=== PATIENT | female | born 1975 | race Caucasian/White ===

== ENCOUNTER 2017-05-16 14:24 | Inpatient (IN) | payer OTHER ==
[2017-05-16] MEDS ORDERED: NS 1,000 ML IV ONE (15:09)
--- NOTE | 2017-05-16 15:09 | EDPHY ---
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, no previous - Personal History LMP (Females 10-55): Hysterectomy Current Tetanus/Diphtheria Vaccine: Unsure - Medical/Surgical History Hx Asthma: No Hx Chronic Respiratory Disease: No Hx Diabetes: No Hx Cardiac Disease: No Hx Renal Disease: No Hx Cirrhosis: No Hx Alcoholism: No Hx HIV/AIDS: No Hx Splenectomy or Spleen Trauma: No Other PMH: adhd, hysterectomy - Social History Smoking Status: Current some day smoker Time Seen by Provider: 05/16/17 14:48 HPI/ROS: CHIEF COMPLAINT: Seizure-like activity HISTORY OF PRESENT ILLNESS: 41-year-old female, generally healthy, no prior history of seizure, arrives via private vehicle. 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 Now back at baseline complaining of feeling tired. Sleep appetite have been normal. No unusual stressors. No recent illness. No head injury. No trauma. PRIMARY CARE PROVIDER:Juma REVIEW OF SYSTEMS: A ten point review of systems was performed and is negative with the exception of the items mentioned in the HPI PAST MEDICAL & SURGICAL HISTORY: No prior history of seizure SOCIAL HISTORY:intermittent cigarette use. No alcohol or drug use PHYSICAL EXAM (Prior to examination, patient consented to physical exam, hands were washed and my usual and customary physical exam procedures followed) 1) GENERAL: Well-developed, well-nourished, alert and oriented. Appears to be in no acute distress. 2) HEAD: Normocephalic, atraumatic 3) HEENT: Pupils equal, round, reactive to light bilaterally. Sclera anicteric.Abrasion to bridge of nose where her glasses are. Nasopharynx, oropharynx, clear, no lesions. Left lateral tongue abrasion. No hemotympanum. No fluid or blood external auditory canal. No rhinorrhea. No raccoon eyes no Segura sign. Ears bilaterally with normal tympanic membranes. 4) NECK: Full range of motion, no meningeal signs. 5) LUNGS: Clear auscultation bilaterally, no wheezes, no rhonchi, no retractions. 6) HEART: Regular rate and rhythm, no murmur, no heave, no gallop. 7) ABDOMEN: No guarding, no rebound, no focal tenderness, negative McBurney's, negative Bernal's, negative Rovsing's, negative peritoneal sign, 8) MUSCULOSKELETAL: Moving all extremities, no focal areas of tenderness, no obvious trauma. No peripheral edema or discoloration. 9) BACK: No CVA tenderness, no midline vertebral tenderness, no fluctuance, no step-off, no obvious trauma, no visual or palpable abnormality. 10) SKIN: No rash, no petechiae. 11) Psychiatric: Patient is oriented X 3, there is no agitation. 12) NEURO: Awake, alert, and oriented to person, place and time. Answers questions appropriately. There were no obvious focal neurologic abnormalities. No cerebellar dysfunction. Normal steady gait. Upper and lower extremities bilaterally with strength 5 / 5, reflexes 2+. DIFFERENTIAL DIAGNOSIS: in no particular include but limited to cardiac arrhythmia, seizure, malignancy (Betty,Ligia Dee) Constitutional: Initial Vital Signs Temperature (C) 36.5 C 05/16/17 14:31 Heart Rate 130 H 05/16/17 14:31 Respiratory Rate 16 05/16/17 14:31 Blood Pressure 129/74 H 05/16/17 14:31 O2 Sat (%) 97 05/16/17 14:31 O2 Delivery Mode Room Air Allergies/Adverse Reactions: No Known Allergies Allergy (Verified 05/16/17 19:12) Home Medications: Medication Instructions Recorded Dextroamphetamine/Amphetamine 5 mg PO DAILY PRN 05/16/17 [Adderall 5 mg Tablet] Dextroamphetamine/Amphetamine 40 mg PO DAILY 05/16/17 [Adderall Xr 20 mg Capsule] Herbals/Supplements -Info Only 1 ea PO DAILY 05/16/17 Medical Decision Making - Diagnostics Imaging Results: Imaging Impressions Brain MRI 05/17/17 07:48 Impression: 1. 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 2. Data submitted for procedural planning. ED Course/Re-evaluation: This patient was turned over me at change of shift. This patient has a brain mass an MRI with mild edema. She has been prophylaxis for her seizure with Keppra. Dr. Jhonatan Yao from Neurosurgery seen the patient. I will admit her to Dr. Sommer The neurosurgical team will develop a plan. (Taras Yeboah) 3:40 p.m.: Reviewed the imaging results with radiologist showing a left temporal calcified mass, radiologist recommended MRI. Discussed this with the patient and MRI will be obtained. Care of patient under supervision of secondary supervising physician Dr Yeboah . Will initiate Keppra. 5:00 p.m. care patient turned over to Dr. Taras Yeboah awaiting MRI brain ( Ligia Hernández) - Data Points Laboratory Results: Laboratory Results 05/17/17 05:10 05/17/17 05:10 05/17/17 05/17/17 05:10 05:10 WBC 10.50 10^3/uL H 10^3/uL (3.80-9.50) RBC 5.12 10^6/uL 10^6/uL (4.18-5.33) Hgb 15.8 g/dL g/dL (12.6-16.3) Hct 44.5 % % (38.0-47.0) MCV 86.9 fL fL (81.5-99.8) MCH 30.9 pg pg (27.9-34.1) MCHC 35.5 g/dL g/dL (32.4-36.7) RDW 12.2 % % (11.5-15.2) Plt Count 278 10^3/uL 10^3/uL (150-400) MPV 9.2 fL fL (8.7-11.7) Neut % (Auto) 68.0 % % (39.3-74.2) Lymph % (Auto) 21.3 % % (15.0-45.0) [place] % (Auto) 7.1 % % (4.5-13.0) Eos % (Auto) 2.8 % % (0.6-7.6) Baso % (Auto) 0.4 % % (0.3-1.7) Nucleat RBC Rel Count 0.0 % % (0.0-0.2) Absolute Neuts (auto) 7.14 10^3/uL H 10^3/uL (1.70-6.50) Absolute Lymphs (auto) 2.24 10^3/uL 10^3/uL (1.00-3.00) Absolute Monos (auto) 0.75 10^3/uL 10^3/uL (0.30-0.80) Absolute Eos (auto) 0.29 10^3/uL 10^3/uL (0.03-0.40) Absolute Basos (auto) 0.04 10^3/uL 10^3/uL (0.02-0.10) Absolute Nucleated RBC 0.00 10^3/uL 10^3/uL (0-0.01) Immature Gran % 0.4 % % (0.0-1.1) Immature Gran # 0.04 10^3/uL 10^3/uL (0.00-0.10) Sodium 139 mEq/L mEq/L (134-144) Potassium 4.4 mEq/L mEq/L (3.5-5.2) Chloride 110 mEq/L mEq/L (97-110) Carbon Dioxide 22 mEq/l mEq/l (22-31) Anion Gap 7 mEq/L L mEq/L (8-16) BUN 10 mg/dL mg/dL (7-23) Creatinine 0.9 mg/dL mg/dL (0.6-1.0) Estimated GFR > 60 Glucose 92 mg/dL mg/dL (70-100) Calcium 9.2 mg/dL mg/dL (8.5-10.4) Total Bilirubin 0.8 mg/dL mg/dL (0.1-1.4) AST 21 IU/L IU/L (14-46) ALT 29 IU/L IU/L (9-52) Alkaline Phosphatase 52 IU/L IU/L (38-126) Total Protein 6.1 g/dL L g/dL (6.3-8.2) Albumin 3.6 g/dL g/dL (3.5-5.0) Medications Given: Levetiracetam 500 mg/ Sodium (Chloride) 105 mls @ 420 mls/hr IV BID DORA Stop: 11/12/17 20:59 Last Admin: 05/17/17 09:17 Dose: 105 mls Discontinued Medications Sodium Chloride (Ns) 1,000 mls @ 0 mls/hr IV ONCE ONE PRN Reason: Wide Open Stop: 05/16/17 15:10 Last Admin: 05/16/17 15:47 Dose: 1,000 mls Levetiracetam 750 mg/ Sodium (Chloride) 107.5 mls @ 440 mls/hr IV EDNOW ONE Stop: 05/16/17 16:11 Last Admin: 05/16/17 16:57 Dose: 107.5 mls Cefazolin Sodium/Dextrose (Ancef 2 Gm (Premix)) 100 mls @ 200 mls/hr IV ONCALL ONE PRN Reason: Protocol Stop: 05/17/17 08:18 Last Admin: 05/17/17 08:23 Dose: 100 mls Departure - Departure Disposition: [facility] Acute Clinical Impression: Seizure, Frontal mass of brain Condition: Fair
[2017-05-16 15:13] LABS: % IMMATURE GRANULYOCYTES 0.3 % (0.0-1.1); ABSOLUTE IMMATURE GRANULOCYTES 0.04 10^3/uL (0.00-0.10); ADD DIFF? NO; ADD MORPH? NO; ADD SCAN? NO; ATYPICAL LYMPHOCYTE FLAG 0 (0-99); FRAGMENT RBC FLAG 0 (0-99); HEMOGLOBIN 17.7 g/dL (12.6-16.3); LEFT SHIFT FLG 0 (0-99); LIPEMIA HEMOLYSIS FLAG 90 (0-99); MEAN CELL HEMOGLOBIN 31.1 pg (27.9-34.1); MEAN CELL HEMOGLOBIN CONCENTR. 36.1 g/dL (32.4-36.7); MEAN PLATELET VOLUME 9.4 fL (8.7-11.7); PLATELET CLUMPS FLAG 0 (0-99); PLATELET COUNT 314 10^3/uL (150-400); RED CELL DISTRIBUTION WIDTH 12.5 % (11.5-15.2)
--- NOTE | 2017-05-16 15:17 | CPEKG ---
Heart Rate: 107 RR Interval: 561 P-R Interval: 180 QRSD Interval: 72 QT Interval: 332 QTC Interval: 443 P Brinkley: 48 QRS Brinkley: -73 T Wave Brinkley: 38 EKG Severity - ABNORMAL ECG - EKG Impression: SINUS TACHYCARDIA EKG Impression: LEFT ANTERIOR FASCICULAR BLOCK EKG Impression: BORDERLINE R WAVE PROGRESSION, ANTERIOR LEADS Electronically Signed By: Taras Yeboah 16-May-2017 20:23:32
[2017-05-16 15:19] LABS: ANION GAP 10 mEq/L (8-16); CALCIUM 9.8 mg/dL (8.5-10.4); CARBON DIOXIDE 23 mEq/l (22-31); CHLORIDE 105 mEq/L (97-110); ETHANOL SERUM < 10 mg/dL (0-10); GLOMERULAR FILTRATION RATE > 60; GLUCOSE 104 mg/dL (70-100); POTASSIUM 3.9 mEq/L (3.5-5.2); SODIUM 138 mEq/L (134-144)
[2017-05-16 15:54] LABS: APTT 30.3 SEC (23.0-38.0); PROTIME(PATIENT) 13.1 SEC (12.0-15.0)
[2017-05-16] MEDS ORDERED: levETIRAcetam 750 MG in NS 100 ML IV ONE (15:57)
[2017-05-16] MEDS ORDERED: GADOBUTROL 10 ML VIAL IVP ONE (17:20)
[2017-05-16] MEDS ORDERED: ONDANSETRON 4 MG/2 ML VIAL IVP PRN (19:40)
[2017-05-16] MEDS ORDERED: ACETAMINOPHEN 325 MG TAB PO PRN (19:40)
[2017-05-16] MEDS ORDERED: TEMAZEPAM 15 MG CAP PO PRN (19:40)
--- NOTE | 2017-05-16 20:10 | GHP ---
[f rep st] HISTORY AND PHYSICAL DATE OF ADMISSION: 05/16/2017 CHIEF COMPLAINT: Seizure. HISTORY OF PRESENT ILLNESS: This is a 41-year-old healthy female, who had a seizure. She has never had a seizure before. She does not drink. She does not use any other drugs, although she is on Adde rall. She did bite her tongue, as well as lose control of her bladder. She has had no prodrome of n eurologic symptoms, acute, including headache, confusion, or any focal weakness. PAST MEDICAL/SURGICAL HISTORY: 1. Hysterectomy. 2. Attention deficit hyperactivity disorder. MEDICATIONS: Please see medication reconciliation. ALLERGIES: No known drug allergies. SOCIAL HISTORY: She is accompanied by her partner. She does smoke occasionally. She does not drink . FAMILY HISTORY: No brain tumors. REVIEW OF SYSTEMS: A 10-point review of systems is conducted and is negative except per HPI. PHYSICAL EXAMINATION: VITAL SIGNS: Blood pressure 116/78, heart rate 95, respiration rate 16, satti ng 96% on room air, temperature is 36.9. GENERAL: The patient is a very pleasant female, who is res ting comfortably, in no acute distress. HEENT: Shows to be normocephalic, atraumatic. CARDIOVASCUL AR: Shows regular rate and rhythm. No murmurs, rubs, or gallops. PULMONARY: Shows lungs clear to auscultation bilaterally. ABDOMEN: Soft, nontender, nondistended. SKIN: Showed no rash. : Camryn wed no [place]. NEUROLOGIC: Shows her to be alert and oriented x3. Cranial nerves 2-12 are intact. She has no aphasia. Strength is intact in the upper and lower extremities, as well as sensation to l ight touch. PSYCHIATRIC: Shows normal mood and affect. LABORATORY DATA: White count is 11.6, hemoglobin is 17.7, INR is 1. Basic metabolic panel is normal . Alcohol level negative. DATA: 1. I discussed this with Dr. Yeboah, who will admit to Med/Surg. 2. I reviewed her brain MRI. This shows a calcified enhancing left temporal mass suggesting a gangl ioglioma or less likely astrocytoma. IMPRESSION/PLAN: A 41-year-old female with new onset seizure, as well as a brain mass. 1. Brain mass: Dr. Yao has been consulted from neurosurgery. It does appear benign on imaging. The plan is to resect this tomorrow. She will be n.p.o. after midnight. 2. Seizure: This is likely due to this mass. Tonight we will continue Keppra. I have placed a bri rology consult for recommendations on ongoing antiepileptics postoperatively. 3. Tobacco use. /[id number]/MODL
[2017-05-16] MEDS: levETIRAcetam 500 MG in NS 100 ML IV SCH (21:31)
--- NOTE | 2017-05-17 00:45 | GCON ---
[f rep st] CONSULTATION NEUROSURGERY CONSULTATION DATE OF CONSULTATION: 05/16/2017 Patient was seen and evaluated at approximately 6:40 p.m. in the [facility] emergency department. HISTORY OF PRESENT ILLNESS: The patient is a 41-year-old woman, who was generally healthy with no pr ior major medical problems. She was apparently at work today when she had a witnessed seizure. This was witnessed by her work colleague, who is not currently present and cannot describe the semiology of the seizure at this time. Patient has no recollection of this event, but did have a short postict al phase afterwards. She now is feeling normal, and other than having a slight headache, says she liu s no major obvious complaints. She was brought to the [facility] emergency departmen t where a CT of the head was obtained, which showed a roughly 1 cm round heavily calcified mass at th e surface of the left temporal tip. Subsequent MRI again revealed a heavily calcified small mass wit h some gliosis surrounding. 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 There is no mass effect or midline shift. Again, the patient has no current symptoms. She denies any significant symptoms prior to having the seizure and does not have headaches often. She is a Ka iser patient. Lives in [place], [place]. REVIEW OF SYSTEMS: A 10-point review of systems is negative other than described in the HPI. PAST MEDICAL HISTORY: ADHD. PAST SURGICAL HISTORY: Hysterectomy. SOCIAL HISTORY: The patient smokes about a half a pack of cigarettes per day. She has no significan t alcohol or other drug use. 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 FAMILY HISTORY: Positive for a brain tumor in the paternal grandmother and paternal aunt, but she do es not know what type of tumors these might have been. ALLERGIES: No known drug allergies. MEDICATIONS: Adderall. PHYSICAL EXAMINATION: VITAL SIGNS: Patient currently is afebrile with normal stable vital signs. N EUROLOGIC: She is awake, alert, and oriented x3. HEENT: The pupils are equal, round, and reactive to light. Extraocular movements are intact. Face is symmetric. Tongue is midline. She has full 5/ 5 strength in the deltoid, biceps, triceps, wrist flexion and extension, and it senior software engineer java bilaterally. In th e lower extremities, she has 5/5 strength at the hip flexors and extensors, knee flexors and extensor s, and plantar and dorsiflexion bilaterally. Her sensation is normal throughout, and deep tendon ref lexes are normal. There is no pronator drift. No dysmetria or dysdiadochokinesia. Her speech is cl ear and fluent. IMAGING REVIEW: See HPI. LABORATORY REVIEW: The white count is 11.6, hemoglobin 17.7, hematocrit is 49, platelet count is 314 ,000. INR is 1.0, PTT is 30.3. Sodium is 138, potassium 3.9, BUN is 12, creatinine 1.0. Glucose is 104. ASSESSMENT AND PLAN: The patient is a 41-year-old woman with a new onset seizure. 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 There is no significant mass effect from this. She has been loaded with K eppra and should stay on Keppra currently. I discussed this mass with her, and while there is no urg ency to this, I recommended that we do a resective biopsy to both evaluate the type of mass and resec t it to get a diagnosis. This would likely be relatively low risk in this location. I told her that we could do this as early as tomorrow, although she wanted to take some time to think about, which I fully support. We talked about her need to avoid driving for potentially up to 6 months due to the seizure, and she is understanding of this. I will again stop by and discuss with her the possibiliti es of resection and biopsy, and we will proceed if she wishes. Otherwise, she could potentially be d ischarged to have this done as an outpatient. We will again discuss this with her tomorrow. In the meantime, she should maintain Keppra 750 twice daily. Thanks for the kind consult consultation. /[id number]/MODL
[2017-05-17 05:26] LABS: % IMMATURE GRANULYOCYTES 0.4 % (0.0-1.1); ABSOLUTE IMMATURE GRANULOCYTES 0.04 10^3/uL (0.00-0.10); ADD DIFF? NO; ADD MORPH? NO; ADD SCAN? NO; ATYPICAL LYMPHOCYTE FLAG 0 (0-99); FRAGMENT RBC FLAG 0 (0-99); HEMATOCRIT 44.5 % (38.0-47.0); HEMOGLOBIN 15.8 g/dL (12.6-16.3); LEFT SHIFT FLG 0 (0-99); LIPEMIA HEMOLYSIS FLAG 90 (0-99); MEAN CELL HEMOGLOBIN 30.9 pg (27.9-34.1); MEAN CELL HEMOGLOBIN CONCENTR. 35.5 g/dL (32.4-36.7); MEAN CELL VOLUME 86.9 fL (81.5-99.8); MEAN PLATELET VOLUME 9.2 fL (8.7-11.7); PLATELET CLUMPS FLAG 0 (0-99); PLATELET COUNT 278 10^3/uL (150-400); RED BLOOD CELL COUNT 5.12 10^6/uL (4.18-5.33); RED CELL DISTRIBUTION WIDTH 12.2 % (11.5-15.2)
[2017-05-17 05:44] LABS: ALANINE AMINOTRANSFERASE 29 IU/L (9-52); ALBUMIN 3.6 g/dL (3.5-5.0); ALKALINE PHOSPHATASE 52 IU/L (38-126); ANION GAP 7 mEq/L (8-16); ASPARTATE AMINOTRANSFERASE 21 IU/L (14-46); BILIRUBIN,TOTAL 0.8 mg/dL (0.1-1.4); CALCIUM 9.2 mg/dL (8.5-10.4); CARBON DIOXIDE 22 mEq/l (22-31); CHLORIDE 110 mEq/L (97-110); CREATININE 0.9 mg/dL (0.6-1.0); GLOMERULAR FILTRATION RATE > 60; GLUCOSE 92 mg/dL (70-100); POTASSIUM 4.4 mEq/L (3.5-5.2); SODIUM 139 mEq/L (134-144); TOTAL PROTEIN 6.1 g/dL (6.3-8.2)
[2017-05-17] MEDS ORDERED: ceFAZolin 2 GM/DEXTROSE 100 ML IV ONE (07:49)
--- NOTE | 2017-05-17 07:57 | NEUSURGPN ---
Assessment/Plan: Assessment: 41 yo female that has a left sided temporal mass after having a seizure Plan: -pt with left sided mass-pt wishes to have surgery here -Dr Yao to take patient to OR later today -consented -risks, need and benefits of surgery discussed -pt understands and agrees -orders in -labs reviewed -pt marked -all questions and concerns answered -call NS with any changes or issues Subjective: No new complaints overnight. No neck/chest/abd or gu complaints. No f/c/n/v/ d. Objective: AAO x 3, PERRLA/EOMI no droop CN 2-12 grossly intact +lt touch TED x 4 Neuro Check Frequency: per routine Urinary Catheter in Place: No - Physician Discussed Patient with Dr.: Yao Patient Seen by Dr.: Yao Neurosurgery Physical Exam - Vitals, I&O, Labs I and O 05/16/17 05/17/17 05/18/17 05:59 05:59 05:59 Weight 63.503 kg Other: Number of Voids Toilet 2 Vital Signs Temp Pulse Resp BP Pulse Ox 36.8 C 84 18 92/53 L 94 05/17/17 04:00 05/17/17 04:00 05/17/17 04:00 05/17/17 04:00 05/17/17 04:00 Laboratory Results 05/17/17 05:10 05/17/17 05:10 ICD10 Worksheet Patient Problems: Problems Problem Status Onset Frontal mass of brain Acute Seizure Acute
[2017-05-17] MEDS: levETIRAcetam 500 MG in NS 100 ML IV SCH (09:17)
[2017-05-17] MEDS ORDERED: CHLORHEXIDINE GLUC HIBICLENS 118 ML BTL TP ONE (10:48)
[2017-05-17] MEDS ORDERED: BUPIVACAINE 0.25% 30 ML SDV ONE (10:48)
[2017-05-17] MEDS ORDERED: BACITRACIN ZINC 14.2 GM OINTTUBE TP ONE (10:49)
[2017-05-17] MEDS ORDERED: SURGIFLO MATRIX KIT WITH THROMBIN TP ONE (10:49)
[2017-05-17] MEDS ORDERED: THROMBIN (BOVINE) 5,000 UNIT VIAL TP ONE (10:50)
[2017-05-17] MEDS ORDERED: MANNITOL 20% 100 GM/500 ML BAG IV ONE (10:50)
[2017-05-17] MEDS ORDERED: AVITENE POWDER 1 GM JAR TP ONE (10:50)
[2017-05-17] MEDS ORDERED: GENTAMICIN SULFATE 80 MG/2 ML VIAL ONE (10:50)
[2017-05-17] MEDS ORDERED: HYDROGEN PEROXIDE 236 ML BOTTLE TP ONE (10:50)
[2017-05-17] MEDS ORDERED: POVIDONE-IODINE 30 GM OINTTUBE TP ONE (10:51)
[2017-05-17] MEDS ORDERED: GADOBUTROL 10 ML VIAL IVP ONE (11:16)
--- NOTE | 2017-05-17 13:05 | NEUROPROG ---
Assessment: [id number] CC: Dr. Sommer consulted neurology for seizure and brain mass. Results placed in the EMR for his review. HPI: Pt admitted to [facility] on 05/16/17 for initial generalized seizure. She denied alcohol, drugs, or prior seizure. She does take Adderall. A brain MRI was obtained and showed a calcified enhancing left temporal mass suggesting a ganglioma or less likely atrocytoma. Neurosurgery was consulted and plans a resection on 05/17/17. Pt was placed on Keppra 500 mg bid for seizure prevention. I initially saw the patient on 05/17/17. She had no complaints at that time and denied any further seizures. PMHx: ADHD, hysterectomy Home Meds: SHx: no alcohol FHx: no brain tumors ROS: Pt denied acute fever, total vision loss, active severe chest pain, respiratory failure, total body severe rash, total bowel/bladder incontinence, psychosis, active seizures, or active bleeding O: VS reviewed General: Alert Eyes: Fundoscopic exam not able to visualize optic disks CV: Heart RRR, no murmur, no carotid bruit Lungs: Clear to auscultation bilaterally, no rhonci or rales Neuro: - Mental: . Oriented x person/place/date . concentration appears normal . speech fluency/comprehension normal . memory appears normal . fund of knowledge appear intact - Cranial Nerves: . II: PERRL, VFFTC . III/IV/: EOMI, no nystagmus, normal smooth pursuits, no Ptosis . V: facial sensation intact to LT . VII: face symmetric to eye closure and smile . VIII: hearing intact to conversation . IX/X: uvula raises symmetrically . XI: SCM 5/5 B/L strength . XII: tongue protrudes midline w/nl strength - Motor: . Tone: normal tone in all 4 extrem . Strength: no pronator drift, strength 5/5 throughout (B/L delt, bic, tri, hand sub plant manager, hf/he, df/pf) - Reflexes: B/L bic/BR/patella trace/4 - Sensory: all 4 extrem intact to light touch - Coord: [id number] wnl, ERICA wnl, [id number] wnl - Gait: deferred Labs: 05/16/17- HCG neg 05/17/17- CBC WBC 10.5H, CMP Anion gap 7L Tot Prot 6.1L Rads: 05/16/17- Brain MRI w/ and w/o con: calcified enhancing left temporal mass suggesting ganglioma or less likely astrocytoma (I personally visualized the images on 05/17/17) Assessment: 1. Left Temporal Brain Mass: Managed by neurosurgery with resection planned today 2. Generalized seizure secondary to diagnosis 1 Plan: - Keppra 500 mg bid (change to PO when possible) - Stop Adderall (seizure risk) - Seizure precautions and no driving until event free for 3 months - F/U in neurology clinic 4-6 weeks after hospital discharge Objective: Vital Signs Temp Pulse Resp BP Pulse Ox 36.3 C 76 16 102/64 99 05/17/17 12:00 05/17/17 12:00 05/17/17 12:00 05/17/17 12:00 05/17/17 12:00 Laboratory Results 05/17/17 05:10 05/17/17 05:10 PT 13.1 SEC (12.0-15.0) 05/16/17 14:55 INR 1.00 (0.83-1.16) 05/16/17 14:55 Allergies/Adverse Reactions: No Known Allergies Allergy (Verified 05/16/17 19:12)
--- NOTE | 2017-05-17 13:34 | HOSPPROG ---
Hospitalist Progress Note Assessment/Plan: New patient encounter 41 yo female admitted following seizure and found to have a left sided temporal mass. She is scheduled for resection today. Started on Keppra with no further seizure activity. No neurological deficits. #Left sided temporal mass -Resection per neurosurgery today #Seizure due to temporal mass -neuro consulted -Cont Keppra BID -seizure precautions -no driving for 3 months until symptom free -f/u with Neuro 4-6 weeks after resection #Tobacco abuse disorder #ADHD, stopped Adderal due to seizure side effect SCD's Subjective: no further seizures. scheduled for resection today Objective: Vital Signs Temp Pulse Resp BP Pulse Ox 36.3 C 76 16 102/64 99 05/17/17 12:00 05/17/17 12:00 05/17/17 12:00 05/17/17 12:00 05/17/17 12:00 Laboratory Results 05/17/17 05:10 05/17/17 05:10 PT 13.1 SEC (12.0-15.0) 05/16/17 14:55 INR 1.00 (0.83-1.16) 05/16/17 14:55 - Physical Exam Constitutional: no apparent distress, appears nourished, not in pain Eyes: PERRL, anicteric sclera, EOMI Ears, Nose, Mouth, Throat: moist mucous membranes, hearing normal, ears appear normal, no oral mucosal ulcers Cardiovascular: regular rate and rhythym, no murmur, rub, or gallop Respiratory: no respiratory distress, no rales or rhonchi, clear to auscultation Gastrointestinal: normoactive bowel sounds Skin: warm Neurologic: AAOx3, sensation intact bilaterally Psychiatric: interacting appropriately, not anxious, not encephalopathic, thought process linear ICD10 Worksheet Patient Problems: Problems Problem Status Onset Frontal mass of brain Acute Seizure Acute
--- NOTE | 2017-05-17 14:40 | ASMTCASEMG ---
Living Arrangements What is your living Answers: With Partner arrangement? Who do you live with? Type Of Residence What kind of residence do Answers: House you live in? Discharge Plan Comments Coordination Status Comments Notes: Chart reviewed and spoke w/ MARÍA ELENA Kim. Pt is 41 y/o female admitted w/ a brain mass. Pt is scheduled to have surgery today. ADDI spoke w/ Carlene, a supportive employment case manager from [facility]. Carlene wanted to see if pt wanted to be transferred to [facility] to have surgery. Pt wishes to stay at [facility] to have surgery. CM spoke w/ CEASAR Canales regarding this case and it is her understanding as well that pt would like to stay here for surgery. Needs are TBD at this time but most likely will d/c independent w/ supportive life partner. CM available for changes. Date Signed: 05/17/2017 02:39 PM Electronically Signed By:NEIL Arana
[2017-05-17] MEDS ORDERED: CEFAZOLIN 2 GM/DEXTROSE/100 ML BAG IV ONE (17:36)
[2017-05-17] MEDS ORDERED: MIDAZOLAM 2 MG/2 ML VIAL IVP ONE (19:02)
--- NOTE | 2017-05-17 19:02 | PDANEPAE ---
ANE History of Present Illness Craniotomy ANE Past Medical History - Cardiovascular History Hx Hypertension: No Hx Arrhythmias: No Hx Coronary Artery / Peripheral Vascular Disease: No Hx CHF / Valvular Disease: No Hx Palpitations: No - Pulmonary History Hx COPD: No Hx Asthma/Reactive Airway Disease: No Hx Recent Upper Respiratory Infection: No Hx Oxygen in Use at Home: No Hx Sleep Apnea: No Sleep Apnea Screening Result - Last Documented: Negative - Endocrine History Hx Diabetes: No Hypothyroid: No Hyperthyroid: No ANE Review of Systems Review of Systems: - Exercise capacity METS (RN): 4 METS ANE Patient History - Allergies Allergies/Adverse Reactions: No Known Allergies Allergy (Verified 05/16/17 19:12) - Home Medications Home Medications: Dextroamphetamine/Amphetamine [Adderall 5 mg Tablet] 5 mg PO DAILY PRN 05/16/17 [Last Taken 05/09/17] Dextroamphetamine/Amphetamine [Adderall Xr 20 mg Capsule] 40 mg PO DAILY [Last Taken 05/16/17] Herbals/Supplements -Info Only 1 ea PO DAILY 05/16/17 [Last Taken 05/16/17] - NPO status NPO Since - Liquids (Date): 05/17/17 NPO Since - Liquids (Time): 00:00 NPO Since - Solids (Date): 05/17/17 NPO Since - Solids (Time): 00:00 - Anes Hx Anes Hx: no prior problems - Smoking Hx Smoking Status: Current every day smoker - Alcohol Use Alcohol Use: Sober - Family Anes Hx Family Anes Hx: none ANE Labs/Vital Signs - Labs Result Diagrams: 05/17/17 05:10 05/17/17 05:10 - Vital Signs Blood Pressure: 111/58 Heart Rate: 78 Respiratory Rate: 16 O2 Sat (%): 95 Height: 165.1 cm Weight: 63.503 kg ANE Physical Exam - Airway Neck exam: FROM Mallampati Score: Class 1 - Pulmonary Pulmonary: no respiratory distress - Cardiovascular Cardiovascular: regular rate and rhythym - ASA Status ASA Status: II ANE Anesthesia Plan Anesthesia Plan: general endotracheal anesthesia
[2017-05-17] MEDS ORDERED: MIDAZOLAM 2 MG/2 ML VIAL ONE (19:03)
[2017-05-17] MEDS ORDERED: fentaNYL 100 MCG/2 ML INJ ONE ×2 (19:16)
[2017-05-17] MEDS ORDERED: PROPOFOL/EMULSION 500 MG/50 ML BOTTLE IV ONE (19:16)
[2017-05-17] MEDS ORDERED: REMIFENTANIL HCL 1 MG VIAL ONE (19:30)
[2017-05-17] MEDS ORDERED: PROPOFOL 200 MG/20 ML VIAL ONE (19:47)
[2017-05-17] MEDS ORDERED: PETROLAT,WHT/MIN OIL/SOD CHL 3.5 GM OPHT.OINT ONE (19:50)
[2017-05-17] MEDS ORDERED: ROCURONIUM 50 MG/5 ML VIAL ONE ×2 (19:50→20:49)
[2017-05-17] MEDS ORDERED: DEXAMETHASONE 4 MG/ML VIAL ONE ×2 (19:50)
[2017-05-17] MEDS ORDERED: LIDOCAINE 2% 5 ML SDV ONE (19:50)
[2017-05-17] MEDS ORDERED: SUGAMMADEX SODIUM 200 MG/2 ML VIAL IVP ONE (19:50)
[2017-05-17] MEDS ORDERED: ONDANSETRON 4 MG/2 ML VIAL ONE (19:50)
[2017-05-17] MEDS ORDERED: NALOXONE HCL 0.4 MG/ML INJ IVP PRN (20:58)
[2017-05-17] MEDS ORDERED: LABETALOL HCL 5 MG/ML 20 ML MDV IVP PRN (20:58)
[2017-05-17] MEDS ORDERED: PROMETHAZINE HCL 25 MG/ML INJ IVP PRN (20:58)
[2017-05-17] MEDS ORDERED: fentaNYL 100 MCG/2 ML INJ IVP PRN (20:58)
[2017-05-17] MEDS ORDERED: ONDANSETRON 4 MG/2 ML VIAL IVP PRN (20:58)
[2017-05-17] MEDS ORDERED: MEPERIDINE 25 MG/ML SYR IVP PRN (20:58)
[2017-05-17] MEDS ORDERED: MAGNESIUM HYDROXIDE 30 ML UDCUP PO PRN (21:09)
[2017-05-17] MEDS ORDERED: POLYETHYLENE GLYCOL 3350 17 GM PKT PO PRN (21:09)
[2017-05-17] MEDS ORDERED: OXYCODONE/APAP 5/325 TAB PO PRN (21:09)
[2017-05-17] MEDS ORDERED: BISACODYL 10 MG SUPP PR PRN (21:09)
[2017-05-17] MEDS ORDERED: MAG HYDROX/AL HYDROX/SIMETH 30 ML UDCUP PO PRN (21:09)
[2017-05-17] MEDS ORDERED: METHOCARBAMOL 750 MG TAB PO PRN (21:09)
[2017-05-17] MEDS ORDERED: LACTULOSE 20 GM/30 ML UDCUP PO PRN (21:09)
[2017-05-17] MEDS ORDERED: NS W/ 20 KCl/L 1,000 ML IV SCH (21:15)
--- NOTE | 2017-05-17 21:20 | POSTOPPROG ---
Post Op Note Date of Operation: 05/17/17 Surgeon: Jhonatan Yao Cosmetologist: ARMANDO Grey Anesthesiologist: Danielle Dawn Anesthesia: GET(General Endotracheal) Pre-op Diagnosis: left temporal tumor Post-op Diagnosis: same Indication: new onset seizures Procedure: left temporal craniotomy for tumor resectoin Findings: temporal mass Inf/Abcess present in the surg proc area at time of surgery?: No EBL: Minimal Complications: none Specimen(s): frozen and permanent specimen
--- NOTE | 2017-05-17 21:27 | SOAPPROG ---
SOAP Progress Note Assessment/Plan: POST OP CHECK: Assessment: Doing well after left temporal craniotomy for tumor resection and biopsy Plan: CPM in ICU Transfer to step down unit when stable and per protocol HOB up 05/17/17 21:21 Subjective: S: Awake, alert, comfortable. Moving all extremities spontaneously Objective: Vital Signs Temp Pulse Resp BP Pulse Ox 36.6 C 78 16 111/58 L 95 05/17/17 17:49 05/17/17 19:01 05/17/17 19:01 05/17/17 19:01 05/17/17 19:01 PT 13.1 SEC (12.0-15.0) 05/16/17 14:55 INR 1.00 (0.83-1.16) 05/16/17 14:55 Vitals: HR: 92 BP: 106/76 02: 100% Neuro: A+ox4 MOYER to command, speech clear EOMI, PERRLA Follows commands x 4 ICD10 Worksheet Patient Problems: Problems Problem Status Onset Frontal mass of brain Acute Seizure Acute
[2017-05-17] MEDS ORDERED: HYDROmorphONE/DILAUDID 1 MG/ML INJ ONE (21:43)
[2017-05-17] MEDS: HYDROmorphONE/DILAUDID 1 MG/ML INJ IVP PRN ×2 (21:46→21:56)
[2017-05-17] MEDS ORDERED: oxyCODONE IR 5 MG TAB ONE (21:57)
[2017-05-17] MEDS: oxyCODONE IR 5 MG TAB PO PRN (21:59)
[2017-05-17] MEDS: levETIRAcetam 750 MG in NS 100 ML IV SCH (22:54)
[2017-05-18] MEDS: levETIRAcetam 500 MG in NS 100 ML IV SCH (00:36)
[2017-05-18 05:57] LABS: % IMMATURE GRANULYOCYTES 0.5 % (0.0-1.1); ABSOLUTE IMMATURE GRANULOCYTES 0.09 10^3/uL (0.00-0.10); ADD DIFF? NO; ADD MORPH? NO; ADD SCAN? NO; ATYPICAL LYMPHOCYTE FLAG 0 (0-99); FRAGMENT RBC FLAG 0 (0-99); LEFT SHIFT FLG 0 (0-99); LIPEMIA HEMOLYSIS FLAG 90 (0-99); MEAN CELL HEMOGLOBIN 30.8 pg (27.9-34.1); MEAN CELL HEMOGLOBIN CONCENTR. 35.6 g/dL (32.4-36.7); MEAN CELL VOLUME 86.7 fL (81.5-99.8); MEAN PLATELET VOLUME 9.4 fL (8.7-11.7); PLATELET CLUMPS FLAG 0 (0-99); PLATELET COUNT 289 10^3/uL (150-400); RED BLOOD CELL COUNT 5.19 10^6/uL (4.18-5.33); RED CELL DISTRIBUTION WIDTH 12.1 % (11.5-15.2)
[2017-05-18 06:26] LABS: ANION GAP 11 mEq/L (8-16); CALCIUM 9.4 mg/dL (8.5-10.4); CARBON DIOXIDE 19 mEq/l (22-31); CHLORIDE 106 mEq/L (97-110); CREATININE 0.8 mg/dL (0.6-1.0); GLOMERULAR FILTRATION RATE > 60; GLUCOSE 186 mg/dL (70-100); POTASSIUM 4.8 mEq/L (3.5-5.2); SODIUM 136 mEq/L (134-144)
--- NOTE | 2017-05-18 07:16 | GOP ---
[f rep st] OPERATIVE REPORT DATE OF OPERATION: 05/17/2017 SURGEON: Jhonatan Yao MD NEUROSURGEON: Jhonatan Yao MD. TEACHER OF THE SIGHT IMPAIRED: Yared Isbell PA-C. ANESTHESIA: General endotracheal. 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 POSTOPERATIVE DIAGNOSIS: Left temporal brain tumor with seizures. PROCEDURE PERFORMED: 1. Left temporal craniotomy. 2. Microsurgical gross total resection of left temporal intrinsic brain tumor. 3. Stealth stereotactic neuronavigation for incision planning and volumetric gross total resection. 4. Use of the intraoperative ultrasound. FINDINGS: Successful brain tumor resection. SPECIMENS: Left temporal brain tumor for frozen and permanent section. ESTIMATED BLOOD LOSS: 50 cc. DESCRIPTION OF PROCEDURE: After informed consent was obtained from the patient, the patient was brou ght to the operating room and was placed in supine position on the operating table. A formal time-ou t was performed, identifying the patient by name, medical record number, and date of . Preopera tive antibiotics were given. An endotracheal tube was placed, and general endotracheal anesthesia wa s smoothly induced. The patient's head was turned slightly toward the right side and placed in Mayfi eld pins. The Stealth unit was then registered to the scalp and checked for accuracy using known isis face landmarks. This was then used to plan a linear incision starting at the root of the left zygoma extending slightly cranially about 4 cm. A small strip of hair was then clipped. 10 cc of 0.25% Ma rcaine with epinephrine was infiltrated into the skin for hemostasis. The head was then prepped and draped in the normal sterile fashion. Skin incision was made using a 10 blade, and the subcutaneous tissues were dissected using monopolar electrocautery. The parietal branch of the superficial tempor al artery was sacrificed and divided. Self-retaining retractors were placed. The temporalis muscle and its fascia were opened using monopo lar electrocautery. This allowed us to identify the root of the zygoma. A single bur hole was place d inferiorly near the root of the zygoma, and the craniotome was used to turn a small 2.5 cm cranioto my flap around the area of the tumor which was identified using the Stealth. Once the craniotomy was turned, intraoperative ultrasound was used to localize the area of the tumor, which was easily visua lized just beneath the surface and was well covered in the craniotomy that was open. At this point, the dura was opened in a cruciate fashion and tacked upward. The operative microscope was brought on the field, and the remainder of the procedure was performed under high-power magnification. A small corticectomy was made using bipolar electrocautery and scissors. 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 Near this was some heavily calcified tissue, and this was removed and taken for permanent section. We continued around the circumference of the cavity, resecting some of this grayish tissue until normal brain was identified. The next sulcus cephalad was identified and carefully preserved. We continued in this manner, removing tumor for permanent section until no further tumor was visuali zed. The cavity was then checked and copiously irrigated using gentamicin irrigation. No further tu mor was seen. The cavity was then lined with Surgicel. The dura was tacked closed using interrupted 4-0 Nurolons, but it was not quite watertight due to some shrinkage of the dura. This was then cove red with a small piece of DuraGen. The craniotomy flap was then plated back in place using Synthes t itanium plates and screws. The wound was copiously irrigated using bacitracin irrigation. The tempo ralis muscle and fascia were closed using interrupted 2-0 Vicryl. The galea was closed using interru pted 2-0 Vicryl, and the skin was closed using running 4-0 Monocryl. The hair was cleaned. Sterile dressings were placed. The patient was removed from the Acevedo pins. She was awakened in the oper ating room and was transferred to the PACU in stable condition. There were no operative complication s. I was scrubbed and present for the entire procedure. BRIEF CLINICAL HISTORY: Em Goss is a 41-year-old woman who presented yesterday with a new o nset of seizure. She was found to have a small 1-2 cm calcified mass in the left temporal tip. She underwent MRI scanning. 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 She was brought electively today for resection. FLUIDS AND URINE OUTPUT: Per the anesthesia record. DRAINS: There were no drains. /[id number]/MODL
[2017-05-18] MEDS: oxyCODONE IR 5 MG TAB PO PRN (07:18)
[2017-05-18] MEDS ORDERED: GADOBUTROL 10 ML VIAL IVP ONE (07:35)
[2017-05-18] MEDS ORDERED: FLU VACC QS 2017-18 (3YR+)/PF 0.5 ML SYR (FLUARIX QUAD) IM ONE (08:07)
[2017-05-18] MEDS ORDERED: SENNOSIDES/DOCUSATE SODIUM TAB PO SCH (09:00)
[2017-05-18] MEDS ORDERED: ADDERALL 10 MG TAB PO PRN (09:00)
[2017-05-18] MEDS ORDERED: DEXTROAMPHETAMINE PO SCH (09:00)
[2017-05-18] MEDS ORDERED: FAMOTIDINE 20 MG TAB PO SCH (09:00)
[2017-05-18] MEDS ORDERED: AMPHETAMINE PO SCH (09:00)
--- NOTE | 2017-05-18 09:20 | NEUSURGPN ---
Assessment/Plan: 41y/o female s/p left temporal craniotomy for tumor resection and biopsy POD1 - Post MRI demonstrates a gross total resection, reviewed by Dr. Yao -Continue to [facility] until follow up in the office - PT/OT/BOBBIN STRIPPER -Optimize pain management -Discussed with Dr. Yao -Please notify NS with any change in neuro/motor exam Subjective: Incisional site tenderness and mild dizziness Objective: NAD A&Ox3 CN II-XII grossly intact. EOMI, PERRLA, MAEx4 5/5 and equal in BUE and BLE. Incision c/d/i - Physician Discussed Patient with : [facility] Physical Exam - Vitals, I&O, Labs I and O 05/17/17 05/18/17 05/19/17 05:59 05:59 05:59 Intake Total 1910 Output Total 25 Balance 1885 Weight 68.5 kg Intake: Oral (ml) 450 IV Intake (ml) 600 IV Infused (ml) 860 NS W/ 20 KCl/L 1,000 ml @ 860 100 mls/hr IV CONT DORA Rx#:[id number] Output: Estimated Blood Loss (ml) 25 Other: Number of Voids Toilet 1 Vital Signs Temp Pulse Resp BP Pulse Ox 36.7 C 15 L 17 106/61 95 05/18/17 07:31 05/18/17 07:31 05/18/17 07:31 05/18/17 07:31 05/18/17 07:31 Laboratory Results 05/18/17 05:46 05/18/17 05:46 ICD10 Worksheet Patient Problems: Problems Problem Status Onset Frontal mass of brain Acute Seizure Acute
[2017-05-18] MEDS: levETIRAcetam 750 MG in NS 100 ML IV SCH (09:26)
--- NOTE | 2017-05-18 10:29 | HOSPPROG ---
Hospitalist Progress Note Assessment/Plan: 41 yo female admitted following seizure and found to have a left sided temporal mass. She had Left temporal craniectomy with tumor resection and biopsy on 05/17 #Left sided temporal mass, s/p left temporal craniectomy with tumor resection -post op care per NS -tolerating PO. I will stop IVF #Seizure due to temporal mass -neuro consulted -Cont Keppra BID -seizure precautions -no driving for 3 months until symptom free -f/u with Neuro 4-6 weeks after resection -No Adderal due to seizures. D/w patient. D/W pharmacy. Will discontinue today. #Tobacco abuse disorder #ADHD, stopped Adderal due to seizure side effect #Leukocytosis, likely reactive. Will monitor. Afebrile. SCD's Subjective: Doing well. Denies pain. Eating well. Taking PO. No focal deficits. Alert. Objective: Vital Signs Temp Pulse Resp BP Pulse Ox 36.7 C 15 L 17 106/61 95 05/18/17 07:31 05/18/17 07:31 05/18/17 07:31 05/18/17 07:31 05/18/17 07:31 Laboratory Results 05/18/17 05:46 05/18/17 05:46 05/17/17 05/18/17 05/19/17 05:59 05:59 05:59 Intake Total 1910 Output Total 25 Balance 1885 PT 13.1 SEC (12.0-15.0) 05/16/17 14:55 INR 1.00 (0.83-1.16) 05/16/17 14:55 - Physical Exam Constitutional: no apparent distress, appears nourished, not in pain Eyes: PERRL, anicteric sclera, EOMI Ears, Nose, Mouth, Throat: moist mucous membranes, hearing normal, ears appear normal, no oral mucosal ulcers Cardiovascular: regular rate and rhythym, no murmur, rub, or gallop Respiratory: no respiratory distress, no rales or rhonchi, clear to auscultation Gastrointestinal: normoactive bowel sounds, soft, non-tender abdomen, no palpable masses Skin: warm Neurologic: AAOx3 Psychiatric: interacting appropriately, not anxious, not encephalopathic, thought process linear ICD10 Worksheet Patient Problems: Problems Problem Status Onset Frontal mass of brain Acute Seizure Acute
[2017-05-18 11:43] VITALS: BP 111/65; PULSE 77; RESP 11; TEMP 97.5; O2SAT 97
--- NOTE | 2017-05-18 12:23 | NEUROPROG ---
Assessment: [id number] CC: F/U for tumor resection, seizures Narrative Summary: Pt admitted to [facility] on 05/16/17 for initial generalized seizure. She denied alcohol, drugs, or prior seizure. She does take Adderall. 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 Neurosurgery was consulted and plans a resection on 05/17/17. Pt was placed on Keppra 500 mg bid for seizure prevention. I initially saw the patient on 05/17/17. She had no complaints at that time and denied any further seizures. HPI: F/U 05/18/17. Tumor resection went very well w/o complications. No more seizures. Pt doing well. 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 Left Temporal Brain Mass: Resected by neurosurgery 05/17/17, pathology pending 2. Generalized seizure secondary to diagnosis 1: Single seizure 05/16/17 Plan: - Keppra 500 mg bid (change to PO when possible) - Stop Adderall (seizure risk) - Seizure precautions and no driving until event free for 3 months - F/U in neurology clinic 4-6 weeks after hospital discharge Neurology will sign off, pt to discharge soon Objective: Vital Signs Temp Pulse Resp BP Pulse Ox 36.4 C 77 11 L 111/65 97 05/18/17 11:40 05/18/17 11:40 05/18/17 11:40 05/18/17 11:40 05/18/17 11:40 Laboratory Results 05/18/17 05:46 05/18/17 05:46 05/17/17 05/18/17 05/19/17 05:59 05:59 05:59 Intake Total 1910 Output Total 25 Balance 1885 PT 13.1 SEC (12.0-15.0) 05/16/17 14:55 INR 1.00 (0.83-1.16) 05/16/17 14:55 Allergies/Adverse Reactions: No Known Allergies Allergy (Verified 05/16/17 19:12)
--- NOTE | 2017-05-18 14:39 | ASDISCHSUM ---
Discharge Information Plan Status:Home with No Needs Medically Cleared to Leave: Discharge Date:05/18/2017 02:02 PM CM D/C Disposition:Home, Routine, Self-Care ADT D/C Disposition:Home, Routine, Self-Care Projected Discharge Date:05/18/2017 02:02 PM Transportation at D/C:Family Discharge Delay Reason: Follow-Up Date:05/18/2017 02:02 PM Discharge Slot: Final Diagnosis: Placement Information Patient Contact Information Contact Name:RIMMA Relationship:Life Partner [address] Work Phone: Jessica:EUFEMIA Swartz Phone: [facility]/Zip Code:[place] [address] Email: Financial Information Financial Class:HMO and PPO Plans [facility] Desc[facility] Primary Plan Number:[id number] Secondary Plan Desc: Secondary Plan Number: Assessment Information [facility] Initial CM Assessment Living Arrangements What is your living Answers: With Partner arrangement? Who do you live with? Type Of Residence What kind of residence do Answers: House you live in? Discharge Plan Comments Coordination Status Comments Notes: Chart reviewed and spoke meli Kim RN. Pt is 41 y/o female admitted w/ a brain mass. Pt is scheduled to have surgery today. ADDI spoke meli Concepcion, a casework specialist from [facility]. Carlene wanted to see if pt wanted to be transferred to [facility] to have surgery. Pt wishes to stay at [facility] to have surgery. ADDI spoke w/ CEASAR Canales regarding this case and it is her understanding as well that pt would like to stay here for surgery. Needs are TBD at this time but most likely will d/c independent w/ supportive life partner. ADDI available for changes. Date Signed: 05/17/2017 02:39 PM Electronically Signed By:NEIL Arana Intervention Information
[2017-05-18] MEDS ORDERED: levETIRAcetam 500 MG TAB PO SCH (21:00)
--- NOTE | 2017-05-19 14:10 | POSTANESTH ---
Post Anesthetic Evaluation Cardiovascular Status: Normal, Stable Respiratory Status: Normal, Stable Level of Consciousness/Mental Status: Can Participate in Eval Pain Control: Adequate, Prn Tx Ordered Nausea/Vomiting Control: Adequate, Prn Tx Ordered Complications Possibly Related to Anesthesia: None Noted (Chart reviewed. Pt Dced to home)
== END 2017-05-18 14:02 | disposition home or self-care (01) | DRG 27 ==
LOC: F3E 20:39 → OBSVTOIN 05-17 13:30 → F2N 05-17 18:27
PROVIDERS: ADMIT Student in an Organized Health Care Education/Training Program; ATTEND Student in an Organized Health Care Education/Training Program
PROC: 00B00ZX Excision of Brain, Open Approach, Diagnostic (ICD-10-PCS; principal; 2017-05-17 17:00)
DX: D49.6 Neoplasm of unspecified behavior of brain (principal); F90.9 Attention-deficit hyperactivity disorder, unspecified type; R56.9 Unspecified convulsions; Z72.0 Tobacco use
CPT/HCPCS: 92523-GN; 96365; 97161-GP; 97165-GO; A9585; C1713; G0008; G0378; G0480; J0171; J0690; J1100; J1170; J1953; J2250; J2405; J2704; J3010